=== PATIENT | male | born 1985 | race Caucasian/White ===

== ENCOUNTER 2018-02-08 18:43 | Emergency (ER) | payer SELFPAY ==
[2018-02-08 18:45] VITALS: BP 131/85; PULSE 64; PULSE 66; RESP 18; RESP 97; TEMP 36.8; O2SAT 98; BMI 29.0
--- NOTE | 2018-02-08 21:37 | ED.VISSUMM ---
- ER Visit Summary Date of Service: 02/08/18 Chief Complaint: Right wrist injury History of Present Illness: The patient is a 32 M who presents with right wrist injury that occurred today. Patient states he fell and landed on his right wrist. Patient describes the pain is dull and aching. Patient states pain is worse with movement. She denies any paresthesias or weakness. Patient denies any head injury or loss of consciousness. Patient denies any other injuries. Physical Examination: Vital signs are stable. Patient is afebrile. Patient is in no acute distress. Oral mucosa is pink and moist. Neck is supple. There is full range of motion. Examination of the right wrist reveals tenderness and edema over the right wrist and distal radius. There is no obvious deformity noted. Range of motion was limited in all motions of the right wrist secondary to pain. There is good range of motion of the digits however. Capillary refill is less than 2 seconds in all digits. Sensation was intact to light touch in the radial, median, and ulnar areas. Strength is 5/5 in the radial, median, and ulnar areas. Test Results: X-rays of the right wrist were obtained. There is a nondisplaced fracture of the right distal radius. There is a plate and screws on the ulna. There is no ulnar fracture. This was interpreted by the radiologist and reviewed by myself. Emergency Department Course and Treatment: Patient was given a dose of Berkey here. Patient was placed in a well-padded volar splint using 4 inch Ortho-Glass. Patient was instructed to ice and elevate the right wrist. Patient was instructed to follow-up with his primary care physician or orthopedist in 3-5 days. Patient was given a prescription for a short course of Berkey. Patient understood and was agreeable with the plan. All questions were answered. Disposition: Discharge home Impression: Acute fracture right distal radius This note was generated with [employer] dictation software. It may contain incorrect words, spelling, and punctuation that were not noted in review of the chart prior to signing ED Disposition - Plan for ED Patient: Disposition: Home or Assisted Living Chief Complaint: Upper Extremity Injury Diagnosis: Distal radius fracture, right Instructions: ED Fx Colles Wrist No Redu Requ Prescriptions: Hydrocodone Bitart/Apap 5-325 [Berkey 5MG-325MG] 1 tab PO Q6H PRN PRN 3 Days #12 tab PRN Reason: Pain Referrals: Care Physician,No Primary [Primary Care Provider] -
[2018-02-08] MEDS: HYDROcodone Bitartrate/Apap 5/325 Tablet PO (21:41)
[2018-02-08 22:18] VITALS: BP 128/78; PULSE 72; RESP 16; O2SAT 100
== END 2018-02-08 22:20 | disposition home or self-care (01) ==
PROVIDERS: Emergency Provider Emergency Medicine
DX: S52.501A Unspecified fracture of the lower end of right radius, initial encounter for closed fracture (principal); W19.XXXA Unspecified fall, initial encounter; Y93.9 Activity, unspecified; Y92.9 Unspecified place or not applicable; Y99.9 Unspecified external cause status; F17.200 Nicotine dependence, unspecified, uncomplicated
CPT/HCPCS: 73110; 99281; 99283

== ENCOUNTER 2023-10-22 17:23 | Emergency (ER) | payer SELFPAY ==
[2023-10-22] VITALS (11 sets, daily range): BP systolic 115–186; BP diastolic 85–151; PULSE 65–83; RESP 16–30; TEMP 36.7–37.4; O2SAT 92–98; BMI 32.5
--- NOTE | 2023-10-22 17:29 | CT_ITS ---
STUDY: CT CERVICAL SPINE WITHOUT CONTRAST REASON FOR EXAM: Male, 37 years old. fall of ladder RADIATION DOSAGE (If Supplied By Facility): CTDIvol = ( 28.09 ) mGy, DLP = ( 651.59 ) mGycm TECHNIQUE: High resolution transaxial imaging was performed without contrast material. Sagittal and coronal images were reconstructed. Individualized dose optimization techniques were used for this CT. COMPARISON: None FINDINGS: Normal craniovertebral junction. Normal anterior atlantoaxial articulation. Normal odontoid process. There is reversal of the normal cervical lordosis. Normal vertebral bodies and posterior osseous elements. C2-3: Normal endplates. Normal disc height and morphology. Normal central canal and intervertebral neuroforamina. C3-4: Normal endplates. Normal disc height and morphology. Normal central canal and intervertebral neuroforamina. C4-5: Normal endplates. Normal disc height and morphology. Normal central canal and intervertebral neuroforamina. C5-6: Normal endplates. Normal disc height and morphology. Normal central canal and intervertebral neuroforamina. C6-7: Normal endplates. Normal disc height and morphology. Normal central canal and intervertebral neuroforamina. C7-T1: Normal endplates. Normal disc height and morphology. Normal central canal and intervertebral neuroforamina. Normal visualized soft tissue structures. CT/Spine Cervical without Contras IMPRESSION: No acute fracture or subluxation. Reversal of the normal lordotic curvature possibly from muscular spasm. Electronically Signed: Rakan Ruiz MD at 19:08 EDT ,
--- NOTE | 2023-10-22 17:29 | CT_ITS ---
STUDY: CT BRAIN WITHOUT CONTRAST REASON FOR EXAM: Male, 37 years old. fall RADIATION DOSAGE (If Supplied By Facility): CTDIvol = ( 44.99 ) mGy, DLP = ( 863.60 ) mGycm TECHNIQUE: Transaxial CT imaging of the brain was performed without administration of intravenous contrast material. Individualized dose optimization techniques were used for this CT. COMPARISON: No relevant priors. FINDINGS: Normal soft tissue structures. Normal calvarium. Normal size ventricles and extra-axial spaces for the patient''s age. Normal white matter tracts of the cerebral hemispheres. Normal basal ganglia and thalami. Normal brainstem. Normal cerebellum. There is no intracranial hemorrhage. There are no findings of an acute ischemic infarction. Normal visualized paranasal sinuses. CT/Brain/Head without Contrast IMPRESSION: Normal unenhanced CT scan of the brain. Electronically Signed: Rakan Ruiz MD at 19:05 EDT ,
--- NOTE | 2023-10-22 17:30 | CT_ITS ---
STUDY: CT CHEST, ABDOMEN T PELVIS WITHOUT CONTRAST REASON FOR EXAM: Male, 37 years old. trauma RADIATION DOSAGE (If Supplied By Facility): CTDIvol = ( 25.83 ) mGy, DLP = ( 2327.82 ) mGycm TECHNIQUE: Transaxial imaging was performed without the administration of intravenous contrast material. Individualized dose optimization techniques were used for this CT. COMPARISON: No relevant priors. FINDINGS: CHEST The lungs are normal. There is no demonstrated pleural abnormality. Normal heart and pericardium. There are no calcifications of the coronary arteries. Normal mediastinum. Normal hilar regions. Normal unenhanced pulmonary arteries. Normal aorta arch and descending thoracic aorta. Normal osseous structures. There is no demonstrated abnormality of the visualized upper abdomen. ABDOMEN The visualized lung bases are unremarkable. The visualized portions of the heart are within normal limits. There is decreased attenuation of the liver consistent with steatosis. The gallbladder is contracted. Normal spleen. Normal pancreas. Normal bilateral adrenal glands. Normal right kidney. Normal left kidney. Normal visualized stomach. Normal small intestine. Normal colon. The appendix is visualized and appears normal. Normal abdominal aorta. Normal inferior vena cava. Normal retroperitoneum. Normal abdominal wall. Normal osseous structures. PELVIS Normal urinary bladder. Normal visualized small intestine. Normal visualized colon. There is no pelvic fluid. There is no pelvic lymphadenopathy or mass lesion. Normal visualized pelvic arteries. Normal abdominal wall. Acute fracture of the anterior cortex of the right sacral ala. No sizable pelvic hematoma. CT/CT Chest, Abd, Pelvis WO Cont IMPRESSION: 1. No mediastinal hematoma, pneumothorax, or hemothorax. 2. No obvious acute solid organ or bowel injury. 3. Fatty infiltration liver. 4. Acute fracture of the anterior cortex of the right sacral ala. No pelvic hematoma. Electronically Signed: Rakan Ruiz MD at 19:50 EDT ,
--- NOTE | 2023-10-22 17:32 | ED.VIS.FALL ---
HPI HPI - Fall History of Present Illness Chief Complaint: Fall Informant: patient and spouse/S.O. Narrative Narrative: Fall off 12 step ladder prior to arrival. Persistent mother had a chainsaw was cutting trees. He fell down to grass. Reports pain in his left wrist and his lower back. He is able to ambulate in here with assistance. No allergies. He is right-hand dominant. No pain down the legs. No anticoagulants. Last meal was 2 PM. Came by private vehicle. Denies any alcohol or any recreational drug use. Prior similar symptoms: No PFSH PFSH Medical History no medical history Home Medications hydrocodone-acetaminophen 5-325mg 5mg-325mg 1 tab PO Q6H PRN PRN Pain 3 days #12 tabs 02/08/18 [Rx Last Taken Unknown] docusate sodium 100 mg capsule (Colace) 100 mg PO DAILY #30 caps 10/22/23 [Rx Last Taken Unknown] oxycodone-acetaminophen 5 mg-325 mg tablet 1 tab PO Q6H PRN PRN Pain 3 days #12 TABLETS 10/22/23 [Rx Last Taken Unknown] Allergy/AdvReac Type Severity Reaction Status Date / Time No Known Allergies Allergy Verified 10/22/23 17:27 Surgical History (Updated 10/22/23 @ 17:30 by Cindy Mejia) History of surgery on upper extremity Social History Smoking Status: Current every day smoker tobacco type: cigarettes ROS ROS ED Constitutional Constitutional ED: Denies chills, fever(s) or sweats Eyes Eyes: Denies change in vision ENT ENT ED: Denies dysphagia or sore throat Cardiovascular Cardiovascular: Denies chest pain, leg edema, palpitations or racing heartbeat Respiratory/Chest Respiratory/Chest: Denies cough, dyspnea or dyspnea on exertion Gastrointestinal Gastrointestinal: Denies abdominal pain, diarrhea, nausea or vomiting Genitourinary Genitourinary ED: Denies dysuria, hematuria or urinary frequency Musculoskeletal Musculoskeletal: Reports back pain and extremity pain; Denies neck pain Integumentary Denies rash or wounds Neurologic Neurologic: Denies headache(s), paresthesias or weakness EXAM Physical Exam Const Vital Signs: 10/22/23 17:23 10/22/23 17:30 10/22/23 18:23 Temperature 98.2 F Temperature Source Temporal Pulse Rate 68 70 Pulse Rate [1 (Initial Baseline)] Pulse Rate [2] Pulse Rate [4] Pulse Rate [5] Pulse Rate [7] Respiratory Rate 28 H 18 Respiratory Rate [1 (Initial Baseline)] Respiratory Rate [2] Respiratory Rate [4] Respiratory Rate [5] Respiratory Rate [7] Respiratory Effort Normal Respiratory Depth Normal Respiratory Pattern Normal Blood Pressure 150/99 H Blood Pressure [1 (Initial Baseline)] Blood Pressure [2] Blood Pressure [4] Blood Pressure [5] Blood Pressure [7] Blood Pressure Mean 116 Pulse Ox 97 94 Oxygen Delivery Method Room Air Room Air Oxygen Delivery Method [1 (Initial Baseline)] Oxygen Delivery Method [2] Oxygen Delivery Method [4] Oxygen Delivery Method [5] Oxygen Delivery Method [7] Oxygen Flow Rate (L/min) Oxygen Flow Rate (L/min) [1 (Initial Baseline)] Oxygen Flow Rate (L/min) [2] Oxygen Flow Rate (L/min) [4] Oxygen Flow Rate (L/min) [5] Oxygen Flow Rate (L/min) [7] 10/22/23 19:26 10/22/23 19:06 10/22/23 19:55 Temperature 98.0 F Temperature Source Pulse Rate 68 Pulse Rate [1 (Initial Baseline)] 79 Pulse Rate [2] 65 Pulse Rate [4] 83 Pulse Rate [5] 70 Pulse Rate [7] 72 Respiratory Rate 24 H Respiratory Rate [1 (Initial Baseline)] 22 H Respiratory Rate [2] 23 H Respiratory Rate [4] 30 H Respiratory Rate [5] 27 H Respiratory Rate [7] 24 H Respiratory Effort Respiratory Depth Respiratory Pattern Blood Pressure 146/87 H Blood Pressure [1 (Initial Baseline)] 154/101 H Blood Pressure [2] 164/111 H Blood Pressure [4] 186/151 H Blood Pressure [5] 161/114 H Blood Pressure [7] 162/111 H Blood Pressure Mean Pulse Ox 96 Oxygen Delivery Method Room Air Nasal Cannula Oxygen Delivery Method [1 (Initial Baseline)] Nasal Cannula Oxygen Delivery Method [2] Nasal Cannula Oxygen Delivery Method [4] Nasal Cannula Oxygen Delivery Method [5] Nasal Cannula Oxygen Delivery Method [7] Nasal Cannula Oxygen Flow Rate (L/min) 3 Oxygen Flow Rate (L/min) [1 (Initial Baseline)] 2 Oxygen Flow Rate (L/min) [2] 2 Oxygen Flow Rate (L/min) [4] 2 Oxygen Flow Rate (L/min) [5] 4 Oxygen Flow Rate (L/min) [7] 4 10/22/23 20:00 10/22/23 20:05 10/22/23 20:10 Temperature Temperature Source Pulse Rate Pulse Rate [1 (Initial Baseline)] Pulse Rate [2] Pulse Rate [4] Pulse Rate [5] Pulse Rate [7] Respiratory Rate Respiratory Rate [1 (Initial Baseline)] Respiratory Rate [2] Respiratory Rate [4] Respiratory Rate [5] Respiratory Rate [7] Respiratory Effort Respiratory Depth Respiratory Pattern Blood Pressure Blood Pressure [1 (Initial Baseline)] Blood Pressure [2] Blood Pressure [4] Blood Pressure [5] Blood Pressure [7] Blood Pressure Mean Pulse Ox Oxygen Delivery Method Nasal Cannula Room Air Room Air Oxygen Delivery Method [1 (Initial Baseline)] Oxygen Delivery Method [2] Oxygen Delivery Method [4] Oxygen Delivery Method [5] Oxygen Delivery Method [7] Oxygen Flow Rate (L/min) 2 Oxygen Flow Rate (L/min) [1 (Initial Baseline)] Oxygen Flow Rate (L/min) [2] Oxygen Flow Rate (L/min) [4] Oxygen Flow Rate (L/min) [5] Oxygen Flow Rate (L/min) [7] 10/22/23 21:00 10/22/23 22:00 Temperature Temperature Source Pulse Rate 74 82 Pulse Rate [1 (Initial Baseline)] Pulse Rate [2] Pulse Rate [4] Pulse Rate [5] Pulse Rate [7] Respiratory Rate 16 17 Respiratory Rate [1 (Initial Baseline)] Respiratory Rate [2] Respiratory Rate [4] Respiratory Rate [5] Respiratory Rate [7] Respiratory Effort Respiratory Depth Respiratory Pattern Blood Pressure 135/88 H 115/93 H Blood Pressure [1 (Initial Baseline)] Blood Pressure [2] Blood Pressure [4] Blood Pressure [5] Blood Pressure [7] Blood Pressure Mean 103 100 Pulse Ox 94 92 Oxygen Delivery Method Nasal Cannula Room Air Oxygen Delivery Method [1 (Initial Baseline)] Oxygen Delivery Method [2] Oxygen Delivery Method [4] Oxygen Delivery Method [5] Oxygen Delivery Method [7] Oxygen Flow Rate (L/min) 2 Oxygen Flow Rate (L/min) [1 (Initial Baseline)] Oxygen Flow Rate (L/min) [2] Oxygen Flow Rate (L/min) [4] Oxygen Flow Rate (L/min) [5] Oxygen Flow Rate (L/min) [7] Positive well nourished and well developed Constitutional Narrative: GCS 15 however uncomfortable, diaphoretic General Appearance ED: well developed HEENT Reports moist mucous membranes normocephalic and atraumatic Eyes PERRL, EOMs intact bilaterally and conjunctivae normal General Eye ED: Yes normal appearance of both eyes Neck no lymphadenopathy and supple Neck Narrative: No midline tenderness no step-offs. General: Negative for tenderness Chest Wall inspection of chest normal and palpation of chest normal Chest Narrative: No chest wall or rib tenderness. Chest: Negative for tenderness Resp normal respiratory effort and normal air movement Resp Narrative: Symmetric breath sounds. Effort and Inspection: symmetric chest movement; Negative for respiratory distress Cardio regular rate, regular rhythm and no murmurs Peripheral Pulses: pulses 2+ throughout GI normal to inspection, nondistended, normoactive bowel sounds and non-tender Palpation: Negative for guarding or rebound tenderness present Back/Spine no CVA tenderness and no thoracic nor lumbar tenderness Back/Spine Narrative: Abrasion left flank, no lacerations or ecchymosis. Extremity Extremity Narrative: Right upper extremity: No clavicle tenderness. Full range of motion. Left upper extremity: No clavicle shoulder or elbow tenderness. Tenderness in the proximal forearm and the distal forearm with deformities at the distal forearm. Skin was intact. No hand tenderness. Lower extremities: Negative logroll bilaterally. General Extremety ED: Yes tenderness; Negative for edema General Extremity: Negative for edema Neuro oriented x3, CN's II-XII intact bilaterally and no sensory deficits noted Sensorium / Orientation: awake and alert Skin no rashes or lesions noted and no wounds MDM MDM MDM Narrative Medical decision making narrative: Interventions / MDM: Differential diagnosis: Fracture Diagnosis considered but do not suspect: N/A My EKG interpretation: N/A Imaging independently reviewed and interpreted by myself: 2 view left forearm: Distal radius fracture dorsal displacement. No proximal fracture noted. 2 view left wrist x-ray: Distal radius fracture. Postreduction left wrist: Improved alignment. Right hip with pelvis 3 views: No fracture. External documents reviewed: N/A Test considered but not ordered:N/A ED course: Patient fall off 12 step ladder denies loss of conscious. Patient diaphoretic, clinical left forearm fracture noted. Reports back pain. IV established for pain medicine fentanyl, Zofran fluids started. Trauma scans head neck chest abdomen pelvis secondary to the fall. Left forearm and wrist films also ordered. Additional fentanyl required prior to imaging studies. 182: Patient returned from imaging confirming his distal radius fracture. Wet read from CT brain by myself shows no intracranial hemorrhage. Patient's pain to his forearm, he was placed in finger traps for gravity by myself. He is given Ativan IV to help him relax. 1899: Patient will not cooperate with the finger traps, with the wrist fracture with dorsal displacement, will need reduction. I consented with his spouse as he has received multiple doses of medications. Placed on the monitor, oxygen, will consent for consultation and reduction. Plan for propofol. Risks and benefits discussed with spouse. Patient's last meal was 2 PM. 1999: Final CT reads concerns for right anterior sacral alar fracture. No pelvic hematoma. No retroperitoneal or lumbar fractures noted. Old fractures were seen by myself L1-L2 anteriorly. Fractures reduction performed with sedation. Postreduction wrist x-ray obtained. 2199: Patient being monitored to be more awake in. However with ambulation he would limp on his right hip which will buckle. He has the sacral alar fracture on the right side on CT. He is sent for dedicated hip x-ray. However also we reviewed his CT scan which includes the hip bones and pelvis, no fractures this area was seen. His reduction wrist x-ray improved alignment. Wrist pain is controlled with splint. He is in a sling. 2299: Hip films were negative. For stability he is provided a walker, his fracture stable in the splint. He is able to use this for better balance. Is given oxycodone prior to discharge. Prescription sent to his pharmacy. Orthopedic follow-up. Re-evaluation: stable Disposition discussed with patient/family/significant other: Patient and significant other Case discussed with consulting clinician: N/A This note was generated with [employer] dictation software. It may contain incorrect words, spelling, and punctuation that were not noted in checking the note before signing. Lab Data Attestation: I reviewed the patient's lab results. Labs: Laboratory Results - last 24 hr 10/22/23 17:35 WBC 7.3 RBC 4.98 Hgb 15.0 Hct 41.9 MCV 84.1 MCH 30.1 MCHC 35.8 RDW Std Deviation 38.5 RDW Coeff of Leanne 12.7 Plt Count 236 MPV 9.3 Immature Gran % (Auto) 0.800 Neut % (Auto) 30.9 L Lymph % (Auto) 55.9 H Anderson % (Auto) 9.2 Eos % (Auto) 2.7 Baso % (Auto) 0.5 Absolute Neuts (auto) 2.3 Absolute Lymphs (auto) 4.08 Nucleated RBC % 0 PT 12.5 INR 0.9 APTT 29.6 Sodium 141 Potassium 3.5 Chloride 108 H Carbon Dioxide 28.0 Anion Gap 5 BUN 10 Creatinine 1.18 Estim Creat Clear Calc 100.02 Est GFR (MDRD) Af Amer 89 Est GFR (MDRD) Non-Af 74 BUN/Creatinine Ratio 8.5 L Glucose 124 H Calcium 9.2 Radiography Diagnostic Testing: Clinical Impression(s) from Imaging Studies Brain CT 10/22/23 17:29 IMPRESSION: Normal unenhanced CT scan of the brain. Electronically Signed: Rakan Ruiz MD at 19:05 EDT Reading Location ID and State: [employer] / [employer] , Service support , Cervical Spine CT 10/22/23 17:29 IMPRESSION: No acute fracture or subluxation. Reversal of the normal lordotic curvature possibly from muscular spasm. Electronically Signed: Rakan Ruiz MD at 19:08 EDT Reading Location ID and State: [employer] / [employer] , Service support , Chest/Abdomen/Pelvis CT 10/22/23 17:30 IMPRESSION: 1. No mediastinal hematoma, pneumothorax, or hemothorax. 2. No obvious acute solid organ or bowel injury. 3. Fatty infiltration liver. 4. Acute fracture of the anterior cortex of the right sacral ala. No pelvic hematoma. Electronically Signed: Rakan Ruiz MD at 19:50 EDT Reading Location ID and State: [employer] / [employer] , Service support , Forearm X-Ray 10/22/23 18:05 IMPRESSION: Acute Colles'' fracture. Electronically Signed: Rakan Ruiz MD at 18:23 EDT , Wrist X-Ray 10/22/23 18:05 IMPRESSION: Acute Colles'' fracture. Electronically Signed: Rakan Ruiz MD at 19:09 EDT , Wrist X-Ray 10/22/23 20:13 IMPRESSION: Improved alignment of comminuted Colles'' fracture. Electronically Signed: Rakan Ruiz MD at 20:45 EDT , Hip/Pelvis X-Ray 10/22/23 22:00 IMPRESSION: No fracture or dislocation. Electronically Signed: Moy Penaloza DO at 22:42 EDT , Procedures Procedural Sedation 1 (Initial Baseline): Consent Signed: Yes Any Problems With Anesthesia: No You/Your family experience fever (hyperthermia) w/anesthesia: Unknown Relationship: spouse Sedation medication: Versed Route: IV Maliampati Score: Class II ASA Classification: II Comment:: Written consent Timeout at 1733. Propofol started at 1737 required total 100 mg of propofol additional 2 mg Versed for good sedation. Normal sinus rhythm on the monitor, he had slight hypoxia required increased oxygen to 4 L with good oxygenation. Other Procedures Procedure(s): Patient maintained in finger traps and hanging position. Gentle traction performed improved alignment was noted, nylon sleeve was already preposition prefinger traps. Curlex dressing extra padding at the wrist performed. 4 inch plaster AP splint was placed secured with Kerlix dressing and Ramon wrap. Patient placed in slight flexed position due to fracture with dorsal displacement. Neurovascularly intact post splinting. Discharge Plan Triage Chief Complaint: Fall ED Provider: Carlito Moss Dx/Rx/DC Orders Clinical Impression: Fall from ladder, Closed buckle fracture of left wrist, Closed sacral fracture Instructions: ED Procedural Sedation, (Adult), ED Fracture, Wrist, General Prescriptions: New oxycodone-acetaminophen [oxycodone-acetaminophen] 5-325 mg tablet 1 tab PO Q6H PRN PRN (Reason: Pain) 3 Days Qty: 12 0RF docusate sodium [Colace] 100 mg capsule 100 mg PO DAILY Qty: 30 0RF No Action hydrocodone-acetaminophen 1 TABLET tablet 1 tab PO Q6H PRN PRN (Reason: Pain) 3 Days Qty: 12 0RF Primary Care Provider: Care Physician,No Primary Referrals: Bharath Herrera DO [Med Staff - Active Staff] - 3-5 Days Care Physician,No Primary [Primary Care Provider] - Activity Restrictions/Additional Instructions: You had CT scan head neck chest abdomen pelvis. Noted sacral alar fracture on the right nondisplaced. Your wrist was fractured, you were reduced in the ED. Maintain the splint. Follow-up with Dr. Herrera. Take pain medication as prescribed. Use stool softeners to prevent constipation. Disposition Disposition: Home, Self Care Discharge Date/Time: 10/22/23 22:40
[2023-10-22] MEDS: Ondansetron 4 MG/2 ML Vial IV (17:34)
[2023-10-22] MEDS: fentaNYL 100 MCG/2 ML Ampul 50 MCG IV ×2 (17:34→18:11)
[2023-10-22] MEDS: 0.9% Normal Saline (1000mL) 1,000 ML 150 ML IV (17:38)
--- NOTE | 2023-10-22 17:41 | ED.RN ---
MEDICATIONS OVERRODE PER DR REQUEST FOR TRAUMA. PT MEDICATED. MEDS DOSE WASTED PER GILBERT RN/BONIFACIO RN
[2023-10-22 17:53] LABS: Absolute Lymphocyte Count 4.08 X10^3/uL (0.83-4.51); Absolute Neutrophil Count 2.3 X10^3/uL (2.0-7.7); Basophil# 0.04 X10^3/uL; Basophil% 0.5 % (0-1); Eosinophils% 2.7 % (0-5); Hematocrit 41.9 % (40-54); Lymphocyte # 4.08 X10^3/ul (0.83-4.51); Lymphocyte % 55.9 % (19-41); Mean Corp Hgb Conc 35.8 g/dL (32-36); Mean Corpuscular Hgb 30.1 pg (27.0-32.0); Mean Corpuscular Volume 84.1 fL (80-94); Mean Platelet Vol. 9.3 fl (6.2-12.0); Monocyte# 0.67 X10^3/uL; Monocyte% 9.2 % (0-10); NRBC Flagged by Analyzer 0 % (0-5); Neutrophil # 2.25 X10^3/uL (2.7-7.7); Neutrophil % 30.9 % (47-70); Platelet Count 236 K/mm3 (150-450); RBC Distribution Width CV 12.7 % (11.6-14.6); RBC Distribution Width SD 38.5 fl (35.1-43.9); Red Blood Count 4.98 M/mm3 (4.6-6.2); White Blood Count 7.3 K/mm3 (4.4-11.0)
[2023-10-22 18:02] LABS: International Normalized Ratio 0.9; Prothrombin Time (Protime)PT. 12.5 SECONDS (11.7-14.9)
[2023-10-22 18:03] LABS: Partial Thromboplast Time 29.6 Seconds (24.1-36.2)
[2023-10-22 18:04] LABS: Anion Gap 5 (5-15); BUN 10 mg/dL (7-18); BUN/Creat Ratio 8.5 RATIO (10-20); Calcium,Total 9.2 mg/dL (8.5-10.1); Chloride 108 mmol/L (98-107); Creatinine, Serum 1.18 mg/dL (0.70-1.30); EST Glomerular Filtration Rate 74 mL/min (>60); Est Glom Filt Rate - Afr Amer 89 mL/min (>60); Estimated Creatinine Clearance 100.02 ml/min; Glucose 124 mg/dL (74-106); Potassium 3.5 mmol/L (3.5-5.1); Sodium Level 141 mmol/L (136-145)
--- NOTE | 2023-10-22 18:05 | RAD_ITS ---
STUDY: X-RAY - LEFT RADIUS AND ULNA REASON FOR EXAM: Male, 37 years old. trauma TECHNIQUE: 2 view(s) of the forearm. COMPARISON: None. FINDINGS: There is no demonstrated soft tissue swelling. Acute posteriorly displaced and angulated comminuted impacted fracture of the distal radius consistent with a Colles'' fracture with extension the radiocarpal joint. Normal visualized ulna. RAD/Forearm 2 Views IMPRESSION: Acute Colles'' fracture. Electronically Signed: Rakan Ruiz MD at 18:23 EDT ,
--- NOTE | 2023-10-22 18:05 | RAD_ITS ---
STUDY: X-RAY - LEFT WRIST REASON FOR EXAM: Male, 37 years old. injury TECHNIQUE: 2 view(s) of the wrist were obtained. COMPARISON: None. FINDINGS: Acute comminuted impacted posteriorly displaced fracture of the distal radius consistent with a Colles'' fracture with extension the radiocarpal joint. Normal radiocarpal articulation. Normal distal radioulnar articulation. Normal carpal bones. Normal carpal articulations. Normal carpometacarpal articulation of the thumb. Normal second through fifth carpometacarpal articulations. Normal visualized metacarpal bones. The soft tissue structures are unremarkable. RAD/Wrist 2 Views IMPRESSION: Acute Colles'' fracture. Electronically Signed: Rakan Ruiz MD at 19:09 EDT ,
[2023-10-22] MEDS: LORazepam 2 MG/ML Syringe IV (18:30)
[2023-10-22] MEDS: Midazolam 2 MG/2 ML Syringe IV (19:46)
--- NOTE | 2023-10-22 20:13 | RAD_ITS ---
STUDY: X-RAY - LEFT WRIST REASON FOR EXAM: Male, 37 years old. post reduction TECHNIQUE: 3 view(s) of the wrist were obtained. COMPARISON: Earlier today FINDINGS: Improved alignment of the comminuted fracture of the distal radius. Normal radiocarpal articulation. Normal distal radioulnar articulation. Normal carpal bones. Normal carpal articulations. Normal carpometacarpal articulation of the thumb. Normal second through fifth carpometacarpal articulations. Normal visualized metacarpal bones. Plaster cast obscures soft tissue and bony detail. RAD/Wrist 2 Views IMPRESSION: Improved alignment of comminuted Colles'' fracture. Electronically Signed: Rakan Ruiz MD at 20:45 EDT ,
--- NOTE | 2023-10-22 22:00 | RAD_ITS ---
INDICATION: injury EXAMINATION/TECHNIQUE: X-RAY - RIGHT XR Hip Unilateral with Pelvis when performed; 2-3 Views COMPARISON: None. FINDINGS: SOFT TISSUES: Unremarkable. BONES/JOINTS: No fracture or dislocation. No significant degenerative changes. No erosive changes. RAD/HIP, UNI W/ Pelvis 2-3 Views IMPRESSION: No fracture or dislocation. Electronically Signed: Moy Penaloza DO at 22:42 EDT ,
[2023-10-22] MEDS: oxyCODONE 5 MG Tablet PO (22:46)
== END 2023-10-22 22:40 | disposition home or self-care (01) ==
PROVIDERS: Emergency Provider Emergency Medicine; Visit Provider Emergency Medicine
DX: S62.102A Fracture of unspecified carpal bone, left wrist, initial encounter for closed fracture (principal); S32.10XA Unspecified fracture of sacrum, initial encounter for closed fracture; F17.210 Nicotine dependence, cigarettes, uncomplicated; W11.XXXA Fall on and from ladder, initial encounter; Y93.89 Activity, other specified
CPT/HCPCS: 25675; 70450; 71250; 72125; 73090; 73100; 73502; 74176; 80048; 85025; 85610; 85730; 96361; 96374; 96375; 96376; 99152; 99284; J7030; A4216; J2405

== ENCOUNTER 2024-07-03 07:00 | Outpatient (RCR) | payer OTHER, SELFPAY ==
--- NOTE | 2024-04-10 08:10 | HP.OTEVAL ---
Patient's Visit Information Visit Information Visit Information: ANNE MARIE DIEGO II is a 38 year old M, referred to Occupational Therapy by Dr. Jazmine Ribera MD, with a diagnosis of extensor tendon adhesions, displaced fx of L ulna styloid. Date of Evaluation: 04/10/24 Occupational Therapist: Lizzy Will Subjective Subjective: This 38 year old male referred to OT services due to L dorsal wrist hardware removal as well as removal of adhesions EDC. Initial L hand fracture 09/2023 from falling off ladder. pt with hardware placed saw therapy once and did exercises at home. Hardware removed 02/14/24 and removal of adhesions to EDC and is now 8 weeks since surgery with order from weaning from splint as well as initiation of AROM. pt is R hand dominant. 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 pt requiring OT at this time to regain necessary ROM decrease risk for scar adhesion and improve overall functional use of LUE. Objective Objective/Observation: pt arrives with L brace on L UE swollen and stiff. scar along dorsal apect of wrist and forearm as well as volar wrist ROM Shoulder: wfl Elbow: wfl Forearm: wfl Wrist: L 15/15 R 45/60 MP: L 45 R 60 IP: L 40 R 75 Opposition: L unable R WFL MP: L D2 20 D3 25 D4 15 D5 25 PIP: L D2 45 D3 40 D4 45 D5 15 ROM Comments: pt is approx 10 cm from MF to palm Strength On Site Construction Superintendent: R 90# Lateral Pinch: R 15# Tripod Pinch: R 15# Strength Comments: unable to test L at this time to test at a later date Edema Wrist: L 19.5cm R 19.5 cm Other: L MCP 22.5 R MCP 24 cm Sensation Sensation Comments: denies Quick DASH-Disab of Arm,Shoulder& Hand Quick DASH Score: 63.6350 Goals Goal:100% adherence to protocol: Yes Goal:Daily scar massage when approriate: Yes Goal:ROM equal to unaffected hand: Yes Goal:On Site Construction Superintendent/Pinch strength at least 75% of unaffected hand: Yes Goal:No pain with affected hand use: Yes Goal:Full use of affected hand in daily activities including work: Yes Other Goal: pt will improve quick dash score by 15 points or more (63.63) in order to improve functional use of LUE Rehabilitation General Assessment: This 38 year old male arrives with dx of L distal radius fx s/p dorsal hardware placement 09/2023 removal and extensor tendon adhesion removal 02/14/24. Order for weaning from brace and initiation of ROM. This male presents with swelling of L forearm and hand, decreased ROM at wrist as well as digits. anticipated decreased strength of L UE and pain impacting performance in self care and IADL tasks. Pt would benefit from OT services 1-2x a week for 4-6 weeks. Rehabilitation Potential: Good Anticipated Interventions Anticipated Interventions: A/AAROM/PROM, Strengthening, Scar Care, Triggerpoint Release, Modalities, Education re Diagnosis and Home Program Visit Plan Frequency: 1-2x /Week Duration: 4-6 Weeks General Plan: AROM tendon glide gentle blocking exercise wrist AROM TEXT: Thank you for the opportunity to evaluate your patient. For Medicare and Medicare HMO plans, please review the plan of care and approve it. It will need to be FAXED BACK to us at [phone] for Medicare purposes. Please let me know if there are questions or concerns regarding this plan of care. Physician Signature: Date:
--- NOTE | 2024-06-19 07:30 | OTREVAL_ITS ---
Re-Evaluation Intro: Dr. Jazmine Ribera MD, It has been my pleasure to treat ANNE MARIE DIEGO II over the last 10 visits for extensor tendon adhesions, displaced fx of L ulna styloid. Please see the progress note below for an update on the occupational therapy plan of care! Subjective Subjective: arrives doing well Objective Objective/Function: completion of update this date for reflection of progress made thus far see below MP IF 60 from 55 MF 60 from 60 RF 65 from 60 LF 65 from 55 wrist 30/35 PIP IF 90 MF 95 RF 95 LF 90 Plan Plan Frequency: 1-2x /Week Duration: 4-6 Weeks Plan: initiate wrist ROM ext. and flexion ( no fist with flexion) ed. 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 strength at least 75% of unaffected hand: Yes Goal:No pain with affected hand use: Yes Goal:Full use of affected hand in daily activities including work: Yes Other Goal: pt will improve quick dash score by 15 points or more (63.63) in order to improve functional use of LUE Anticipated Interventions Anticipated Interventions Anticipated Interventions: A/AAROM/PROM, Strengthening, Scar Care, Triggerpoint Release, Modalities, Education re Diagnosis and Home Program Re-Evaluation Ending Re-evaluation ending: Please do not hesitate to contact me at [phone] by phone or if you have questions or concerns regarding this new plan of care! Sincerely, Lizzy Will
--- NOTE | 2024-07-03 08:53 | HP.OT.NRP ---
Patient Information Patient Information: ANNE MARIE DIEGO II was seen in my office for initial evaluation on 04/10/24. The following Plan of Care was established for this patient: POC Established Initial Frequency: 1-2x /Week Initial Duration: 4-6 Weeks Plan: initiate wrist ROM ext. and flexion ( no fist with flexion) ed. No Passive motion relative motion orthosis Anticipated Interventions Anticipated Interventions: A/AAROM/PROM, Strengthening, Scar Care, Triggerpoint Release, Modalities, Education re Diagnosis and Home Program Last Seen Last Seen: This patient was last seen in our office 07/03/24. Pertinent comments regarding their Occupational therapy will appear below: This 38 year old male seen by OT for L dorsal wrist hardware removal and partial ext tendon repair. pt progressed in POC improved ROM now able to make composite fist at this time and progressing in strengthening. pt states he believes he can take on his exercises and stretching from here and wishes to be discharged at this time. At this point I will be discontinuing this patient from occupational therapy. I would be happy to see this patient again in the future if found appropriate by the physician. Thank you! Lizzy Will
--- NOTE | 2024-07-03 08:54 | HP.OTDCSUM_ITS ---
Discharge Summary D/C Summary: It has been my pleasure to treat ANNE MARIE DIEGO II under orders from Dr. Jazmine Ribera MD, for the diagnosis of extensor tendon adhesions, displaced fx of L ulna styloid for a total of 11 visit(s). Please see the following information for a summary of their discharge status. Overall Improvement % Improvement: 80 Objective Objective/Function: L hand MCP IF 60 MF 55 RF 55 LF 65 L hand PIP IF 90 MF 95 RF 90 LF 90 after treatment: L hand MCP IF 60 MF 60 RF 55 LF 65 L hand PIP IF 98 MF 95 RF 95 LF 90 wrist 30/30 Goals Patient Goals: Regain Strength, Decrease Pain, Decrease Swelling/Stiffness, Improve Fine Motor Skills, Use Hand/Wrist/Arm Normally Again, Increase ROM, Resume Former Household Responsibilities (Cooking,Cleaning,Yard, etc.) and Resume Hobbies Goal:100% adherence to protocol: Yes Goal Progress: Goal Met Goal:Daily scar massage when approriate: Yes Goal Progress: Goal Met Goal:ROM equal to unaffected hand: Yes Goal Progress: not met progressing Goal: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 and flexion ( no fist with flexion) ed. No Passive motion relative motion orthosis D/C Information Discharge Comments: This 38 year old male seen by OT for L dorsal wrist hardware removal and partial ext tendon repair. pt progressed in POC improved ROM now able to make composite fist at this time and progressing in strengthening. pt states he believes he can take on his exercises and stretching from here and wishes to be discharged at this time. d/c sentence: If there are questions or concerns regarding this patient's occupational therapy, please fell free to call me at [phone]. Thank you for the referral of this patient. Sincerely, Lizzy Will
== END 2024-07-03 19:00 | disposition home or self-care (01) ==
LOC: OT 07:00
PROVIDERS: Referring Provider Orthopaedic Surgery Hand Surgery; Visit Provider Orthopaedic Surgery Hand Surgery
DX: M77.9 Enthesopathy, unspecified (principal); S52.612D Displaced fracture of left ulna styloid process, subsequent encounter for closed fracture with routine healing; S52.572D Other intraarticular fracture of lower end of left radius, subsequent encounter for closed fracture with routine healing
CPT/HCPCS: 97110; 97140; 97165; 97530